=== PATIENT | female | born 1985 | race Caucasian/White ===

== ENCOUNTER → 2017-04-08 | Outpatient (CLI) | payer OTHER ==
[~2017-04-08] MED LIST: BENA25CA2 PO; BIOT7500 PO; DOCU10CA PO; FOLI800T PO; MAGN500C PO; PRENTAB7 PO; TYLE325T5 PO
--- NOTE | 2017-04-10 10:21 | REP ---
Bilateral lower extremity duplex venous ultrasound: DVT and reflux evaluation: Repeat dictation. Findings: The deep veins are anechoic and fully compressible from the groin to the popliteal fossa in both lower extremities on two-dimensional scanning. Color flow and spectral Doppler interrogation are unremarkable bilaterally. There is no evidence of deep vein thrombosis. There is a lymph node visible in the right groin with normal appearing fatty hilar architecture. This has dimensions of 1.9 x 1.1 x 3.0 cm. Reflux evaluation findings: Right leg: Multiple levels of significant reflux are seen in the superficial and deep system of the right lower extremity. Reflux greater than 0.5 seconds in duration is seen in the common femoral vein. There is an anterior accessory greater saphenous vein present which shows reflux greater than 0.5 seconds. Reflux lasting 2.25 seconds is seen in the proximal greater saphenous vein at the saphenofemoral junction where the greater saphenous vein measures 12 mm in AP dimension. Reflux was not observed in the mid or distal greater saphenous vein. The mid greater saphenous vein measures 4.7 mm in AP dimension at midthigh and 3.3 mm in AP dimension at the knee. Reflux greater than 0.5 seconds in duration is observed in the proximal mid and distal femoral vein as well as in the popliteal vein. Reflux is observed in the lesser saphenous vein 4.3 seconds in duration. The lesser saphenous vein measures 13 mm. Left leg: Significant reflux is observed in the deep system and in the greater saphenous vein on the left side. There are superficial visible collaterals off the greater saphenous vein. Reflux greater than 0.5 seconds in duration is seen in the common femoral vein. 4.45 seconds of reflux is observed in the greater saphenous vein at the saphenofemoral junction where the vein measures 13.2 mm in AP dimension. At mid thigh, there is 6.0 seconds of reflux in a 5.7 mm greater saphenous vein. At the knee, there is 4.5 seconds of reflux in a 7.1 mm greater saphenous vein. Reflux greater than 0.5 seconds in duration is seen in the proximal mid and distal femoral vein as well as in the popliteal vein. No reflux was observed in the lesser saphenous vein. The lesser saphenous vein measures 9.1 mm. Impression: Significant bilateral lower extremity venous reflux involving the deep and superficial systems. No evidence of deep vein thrombosis. Signed by Juancho Ruiz MD 04/10/2017 12:38 P
== END ==
LOC: M RAD 11:22
PROVIDERS: ATTEND Surgery Vascular Surgery
DX: I83.90 Asymptomatic varicose veins of unspecified lower extremity (principal)